=== PATIENT | male | born 1965 | race Caucasian/White ===

== ENCOUNTER 2018-10-05 07:31 | Emergency (ER) | payer OTHER ==
--- NOTE | 2018-10-05 07:56 | ED ---
Throat Pain/Nasal Congestion - HPI Summary HPI Summary: A 53 y/o male presents to [facility] with a chief complaint of dental pain since nine days ago. His tooth pain in in the lower left of his mouth and radiates to his left ear. He rates his pain as an 8/10 in severity. He thinks he has an abscess. He denies using abx. The patient denies SOB or dysphagia. He says that recently he has been eating soft foods like yogurt. - History of Current Complaint Chief Complaint: EDDentalPain Time Seen by Provider: 10/05/18 07:45 Hx Obtained From: Patient Onset/Duration: Sudden Onset, Lasting Days, Still Present Severity: Severe Associated Signs And Symptoms: Negative: Dysphagia Cough: None - Allergies/Home Medications Allergies/Adverse Reactions: Allergies Allergy/AdvReac Type Severity Reaction Status Date / Time No Known Allergies Allergy Verified 04/07/13 16:31 PMH/Surg Hx/FS Hx/Imm Hx Endocrine/Hematology History: Denies: Hx Diabetes Cardiovascular History: Denies: Hx Hypertension Infectious Disease History: No Infectious Disease History: Denies: Traveled Outside the [place] in Last 30 Days - Family History Known Family History: Negative: Hypertension, Diabetes - Social History Alcohol Use: None Substance Use Type: Reports: None Smoking Status (MU): Heavy Every Day Tobacco Smoker Review of Systems Negative: Fever Positive: Dental Pain, Ear Ache, Other - negative: dysphagia Negative: Shortness Of Breath All Other Systems Reviewed And Are Negative: Yes Physical Exam - Summary Physical Exam Summary: Appearance: Well appearing, no pain distress Skin: warm, dry, reflects adequate perfusion Head/face: tenderness over the 18-19 teeth, no swelling, no abscess Eyes: EOMI, SAULO ENT: normal, no dysphagia Neck: supple, non-tender Respiratory: CTA, breath sounds present, no SOB Cardiovascular: RRR, pulses symmetrical Abdomen: non-tender, soft Musculoskeletal: normal, strength/ROM intact Neuro: normal, sensory motor intact, A&Ox3 Triage Information Reviewed: Yes Vital Signs On Initial Exam: Initial Vitals Temp Pulse Resp BP Pulse Ox 96.8 F 97 18 145/102 95 10/05/18 07:34 10/05/18 07:34 10/05/18 07:34 10/05/18 07:34 10/05/18 07:34 Vital Signs Reviewed: Yes Diagnostics - Vital Signs Vital Signs Temp Pulse Resp BP Pulse Ox 04/23/19 07:34 96.8 F 97 18 145/102 95 - Laboratory Lab Statement: Any lab studies that have been ordered have been reviewed, and results considered in the medical decision making process. EENT Course/Dx - Course Course Of Treatment: A 53 y/o male presents to [facility] with a chief complaint of dental pain since nine days ago. The physical exam revealed tenderness over the 18-19 teeth, no swelling, no abscess, no SOB, no dysphagia. In the ED course the patient was given Clindamycin PO and Percocet PO. The patient will be discharged home with prescriptions for Clindamycin, Motrin and Percocet and was instructed to follow up with a dentist. He is agreeable with this plan. - Differential Diagnoses Differential Diagnoses: Dental Caries - Diagnoses Provider Diagnoses: Pain, dental Discharge - Sign-Out/Discharge Documenting (check all that apply): Patient Departure - DC Patient Received Moderate/Deep Sedation with Procedure: No - Discharge Plan Condition: Stable Disposition: HOME Prescriptions: Clindamycin Cap(NF) [Clindamycin Cap 300 mg Cap(NF)] 300 mg PO Q6H #40 cap Ibuprofen TAB* [Motrin TAB* 600 MG] 600 mg PO Q6H PRN #20 tab MDD 4 PRN Reason: Pain Oxycodone HCl/Acetaminophen [Percocet 5-325 mg Tablet] 1 each PO TID #9 tablet MDD pain Referrals: Campos Galloway MD [Primary Care Provider] - 3 Days () Additional Instructions: Return to the ED if you experience any new or worsening symptoms. - Billing Disposition and Condition Condition: STABLE Disposition: Home - Attestation Statements Document Initiated by Ciciibe: Yes Documenting Scribe: Venkatesh Gramajo Provider For Whom Avi is Documenting (Include Credential): David Vyas MD Scribe Attestation: Venkatesh Silva scribed for David Vyas MD on 10/05/18 at 1505. Scribe Documentation Reviewed: Yes Provider Attestation: The documentation as recorded by the Venkatesh ellison accurately reflects the service I personally performed and the decisions made by me, David Vyas MD Status of Scribe Document: Viewed
[2018-10-05] MEDS ORDERED: Clindamycin CAP* 150 MG PO ONE (08:04)
[2018-10-05] MEDS ORDERED: oxyCODONE/Acetamin 5/325 MG* TAB PO ONE (08:05)
[2018-10-05 08:22] VITALS: BP 160/92
== END 2018-10-05 08:21 | disposition home or self-care (01) ==
LOC: ED 07:31
DX: K08.89 Other specified disorders of teeth and supporting structures (principal); Z72.0 Tobacco use
CPT/HCPCS: 99282; A9270-GY